=== PATIENT | female | born 1975 | race Caucasian/White ===

== ENCOUNTER 2019-01-08 14:14 | Emergency (ER) | payer OTHER, SELFPAY ==
[2019-01-08 14:16] VITALS: BP 137/87; PULSE 90; RESP 16; TEMP 36.4; O2SAT 97; BMI 23.3
--- NOTE | 2019-01-08 14:16 | EKG12_ITS ---
Test Reason : CP Blood Pressure : / mmHG Vent. Rate : 089 BPM Atrial Rate : 089 BPM P-R Int : 152 ms QRS Dur : 084 ms QT Int : 362 ms P-R-T Axes : 071 078 059 degrees QTc Int : 440 ms Normal sinus rhythm Nonspecific ST abnormality Abnormal ECG Confirmed by CHIDI DUMONT, ANDRES ([id number]), city editor JACOB WINCHESTER ([id number] on 01/11/2019 3:51:33 PM Referred By: MANNIE/ARMAND Confirmed By:ANDRES MURILLO MD
--- NOTE | 2019-01-08 14:28 | RAD_ITS ---
STUDY: X-RAY CHEST REASON FOR EXAM: Female, 44 years old. Chest pain. TECHNIQUE: Single AP portable view of the chest. COMPARISON: Comparison is made with prior study November 05, 2016. FINDINGS: Hyperinflation. There is no demonstrated pleural abnormality. Normal size heart. Normal mediastinum and lorne. There is prominence of the pulmonary hilar arteries without peripheral pulmonary vascular congestion, suggesting pulmonary hypertension. Normal visualized aortic arch and descending thoracic aorta. Normal visualized thoracic spine. Normal visualized ribs, clavicles, and shoulders. There is no demonstrated abnormality of the visualized soft tissue structures of the upper abdomen. RAD/Chest 1 View (Portable) IMPRESSION: Hyperinflation. Prominence of the hilar pulmonary arteries. Electronically Signed: Grayson Stewart, at 15:04 EDT , Service support ,
--- NOTE | 2019-01-08 14:28 | EKG12_ITS ---
Test Reason : REPEAT Blood Pressure : / mmHG Vent. Rate : 073 BPM Atrial Rate : 073 BPM P-R Int : 132 ms QRS Dur : 086 ms QT Int : 400 ms P-R-T Axes : 010 077 051 degrees QTc Int : 440 ms Normal sinus rhythm Normal ECG Confirmed by KELECHI DUMONT, MIKE ([id number]), proposal editor TAVO HOLLINGSWORTH ([id number]) on 01/10/2019 1:31:20 PM Referred By: KYLE Confirmed By:MIKE LORENZ MD
[2019-01-08 14:40] LABS: Absolute Lymphocyte Count 0.99 X10^3/ul (0.83-4.51); Absolute Neutrophil Count 6.6 X10^3/uL (2.0-7.7); Basophil# 0.01 X10^3/uL; Basophil% 0.1 % (0-1); Eosinophil# 0.01 X10^3/uL; Eosinophils% 0.1 % (0-5); Hemoglobin 13.8 g/dl (12.0-15.0); Lymphocyte # 0.99 X10^3/ul (4.0); Lymphocyte % 12.4 % (19-41); Mean Corp Hgb Conc 33.7 g/gl (32-36); Mean Corpuscular Volume 89.1 fL (81-99); Mean Platelet Vol. 10.1 fl (6.2-12.0); Monocyte# 0.34 X10^3/uL; Monocyte% 4.3 % (0-10); Neutrophil # 6.61 X10^3/uL (2.7-7.7); Platelet Count 229 K/mm3 (150-450); RBC Distribution Width SD 42.4 fl (35.1-43.9)
[2019-01-08 14:53] LABS: POSITIVE COUNT NO; POSITIVE DIFFERENTIAL NO; POSITIVE MORPHOLOGY NO
[2019-01-08 14:55] LABS: Anion Gap 6 (5-15); BUN 10 mg/dL (7-18); BUN/Creat Ratio 13.2 RATIO (10-20); Calcium,Total 9.3 mg/dL (8.5-10.1); Chloride 106 mmol/L (98-107); Creatinine, Serum 0.76 mg/dL (0.55-1.02); EST Glomerular Filtration Rate 88 mL/min (>60); Est Glom Filt Rate - Afr Amer 107 mL/min (>60); Glucose 97 mg/dL (74-106); Potassium 3.5 mmol/L (3.5-5.1); Sodium Level 139 mmol/L (136-145)
--- NOTE | 2019-01-08 16:00 | ED.VISSUMM ---
- ER Visit Summary Date of Service: 01/08/19 Chief Complaint: Chest pain History of Present Illness: The patient is a 44 F has no history of prior DVT when she was number of years ago. No prior PE. No cardiac history. No history of hypertension, high cholesterol or diabetes. Patient states she has had intermittent left-sided chest pain since Tuesday. She denies any dyspnea nor fever. No chills. No cough. No shortness of breath. No hemoptysis. No leg pain or swelling. It is not associated with any type of exertion. Nothing specifically makes the pain better or worse. It is not pleuritic. Patient did have a similar episode to this about 2 years ago had a negative workup at that time. Was not admitted. Denies her having a stress test or heart catheterization. Physical Examination: Well-appearing middle-age female. Vital signs are stable afebrile. Pulse ox 97% on room air no signs of hypoxia. HEENT exam normal. Neck nontender no JVD. Lungs clear to auscultation bilaterally. Equal symmetrical. Chest wall nontender. Heart regular rate and rhythm rate about 80 no murmur. Abdomen soft and nontender. Normal bowel sounds no peritoneal signs. Specifically the right upper quadrant is nontender. The pain is not associated with eating. Currently she is pain-free. Patient is moving all 4 extremities. They are equal and symmetrical. Calves are nontender without edema or cords. Equal symmetrical radial pulses. 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 Back nontender. Neurologically she is awake alert with no focal motor Test Results: CBC normal. Chemistries normal. Troponin normal. Initial EKG sinus rhythm rate 89 with no acute signs of NV or ischemia. Portable 1 view chest x-ray read by myself and radiologist shows no acute abnormality. Normal cardiac silhouette and mediastinum. No pneumothorax. No infiltrate. Emergency Department Course and Treatment: Patient's symptoms are nonexertional and do not sound cardiac. The nurses put an initial chest pain order sets orders which are currently negative. I am adding a d-dimer due to her history of a prior DVT. Clinically this does not sound like a PE. It does not also sound like it is biliary colic. Treatment Plan:. BMP normal. Troponin normal. D-dimer normal. EKG sinus rhythm rate 89 with no acute signs of NV or ischemia. Chest x-ray portable one view shows no acute abnormality read both by myself the radiologist. Normal cardiac silhouette and mediastinum. Repeat exam patient is doing well at 1744. I went over all test results of both her and her . Clinically this does not sound like cardiac ischemia. The d-dimer is negative and it does not appear to be a PE either I am comfortable with her being discharged home with outpatient follow-up. Disposition: Discharge Impression: Left-sided chest pain resolved uncertain etiology This note was generated with [employer] dictation software. It may contain incorrect words, spelling, and punctuation that were not noted in review of the chart prior to signing ED Disposition - Plan for ED Patient: Referrals: Jesus Cartagena DO [Primary Care Provider] -
--- NOTE | 2019-01-08 16:03 | ED.DCSUM_ITS ---
- ER Visit Summary Date of Service: 01/08/19 Chief Complaint: Chest pain History of Present Illness: The patient is a 44 F has no history of prior DVT when she was number of years ago. No prior PE. No cardiac history. No history of hypertension, high cholesterol or diabetes. Patient states she has had intermittent left-sided chest pain since Tuesday. She denies any dyspnea nor fever. No chills. No cough. No shortness of breath. No hemoptysis. No leg pain or swelling. It is not associated with any type of exertion. Nothing specifically makes the pain better or worse. It is not pleuritic. Patient did have a similar episode to this about 2 years ago had a negative workup at that time. Was not admitted. Denies her having a stress test or heart catheterization. Physical Examination: Well-appearing middle-age female. Vital signs are stable afebrile. Pulse ox 97% on room air no signs of hypoxia. HEENT exam normal. Neck nontender no JVD. Lungs clear to auscultation bilaterally. Equal symmetrical. Chest wall nontender. Heart regular rate and rhythm rate about 80 no murmur. Abdomen soft and nontender. Normal bowel sounds no peritoneal signs. Specifically the right upper quadrant is nontender. The pain is not associated with eating. Currently she is pain-free. Patient is moving all 4 extremities. They are equal and symmetrical. Calves are nontender without edema or cords. Equal symmetrical radial pulses. 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 Back nontender. Neurologically she is awake alert with no focal motor Test Results: CBC normal. Chemistries normal. Troponin normal. Initial EKG s inus rhythm rate 89 with no acute signs of ME or ischemia. Portable 1 view chest x-ray read by myself and radiologist shows no acute abnormality. Normal cardiac silhouette and mediastinum. No pneumothorax. No infiltrate. Emergency Department Course and Treatment: Patient's symptoms are nonexertional and do not sound cardiac. The nurses put an initial chest pain order sets orders which are currently negative. I am adding a d-dimer due to her history of a prior DVT. Clinically this does not sound like a PE. It does not also sound like it is biliary colic. Treatment Plan:. BMP normal. Troponin normal. D-dimer normal. EKG sinus rhythm rate 89 with no acute signs of ME or ischemia. Chest x-ray portable one view shows no acute abnormality read both by myself the radiologist. Normal cardiac silhouette and mediastinum. Repeat exam patient is doing well at 1744. I went over all test results of both her and her . Clinically this does not sound like cardiac ischemia. The d-dimer is negative and it does not appear to be a PE either I am comfortable with her being discharged home with outpatient follow-up. Disposition: Discharge Impression: Left-sided chest pain resolved uncertain etiology This note was generated with [employer] dictation software. It may contain incorrect words, spelling, and punctuation that were not noted in review of the chart prior to signing ED Disposition - Plan for ED Patient: Referrals: Jesus Cartagena DO [Primary Care Provider] -
[2019-01-08 16:44] LABS: D-Dimer Quantitative (DVT/PE) 0.36 FEU/ug/m (0.27-0.49)
[2019-01-08 16:53] VITALS: BP 105/80; PULSE 76; RESP 12; O2SAT 98
[2019-01-08 17:27] VITALS: BP 106/74; PULSE 886; RESP 12; O2SAT 99
--- NOTE | 2019-01-08 17:46 | ED.DEP ---
ED Disposition - Plan for ED Patient: Disposition: Home or Assisted Living Instructions: ED Chest Pain Atypical Unkn Cause Referrals: Jesus Cartagena DO [Primary Care Provider] - 3-5 Days Additional Instructions: Your tests, EKG and chest x-ray were all unremarkable today. Follow-up with your primary care physician or return to the ER feeling worse.
[2019-01-08 18:14] VITALS: BP 114/77; PULSE 88; RESP 14; O2SAT 98
== END 2019-01-08 18:19 | disposition home or self-care (01) ==
PROVIDERS: Emergency Provider Emergency Medicine; Family Provider Family Medicine; PCP Family Medicine
DX: R07.9 Chest pain, unspecified (principal)
CPT/HCPCS: 71045; 80048; 84484; 85025; 85379; 93005; 99284; A4216

== ENCOUNTER 2024-02-17 12:22 | Emergency (ER) | payer OTHER, SELFPAY ==
[2024-02-17 12:23] VITALS: BP 131/81; PULSE 74; RESP 19; TEMP 36.1; O2SAT 96; BMI 22.7
--- NOTE | 2024-02-17 12:33 | EKG12_ITS ---
Test Reason : CP Blood Pressure : / mmHG Vent. Rate : 078 BPM Atrial Rate : 078 BPM P-R Int : 144 ms QRS Dur : 082 ms QT Int : 388 ms P-R-T Axes : 000 068 036 degrees QTc Int : 442 ms Normal sinus rhythm with sinus arrhythmia Normal ECG Confirmed by CHIDI DUMONT, ANDRES ([id number]), content editor TAVO HOLLINGSWORTH ([id number]) on 02/20/2024 11:36:44 AM Referred By: Confirmed By:ANDRES MURILLO MD
--- NOTE | 2024-02-17 12:35 | EDS_ITS ---
HPI <GREGG Garcia - Last Filed: 02/17/24 15:40> History of Present Illness Chief Complaint: Chest Pain Narrative Narrative: Patient presenting today due to left-sided chest achiness that radiates to her back, left arm, and the left side of her neck. Her symptoms started while she was doing laundry around 10 AM this morning. She then went to a and she noticed that her hands became sweaty, she felt nauseous, and her chest symptoms felt worse, prompting her to come in for evaluation. She reports that now it is not necessarily painful but she does feel a pressure. She states that this has happened intermittently over the past couple months. She has never undergone any cardiac testing. She denies any significant personal or family cardiac history. She denies a PMH of any chronic health conditions. PE Risk Factors: Negative for Recent Travel/Surgery, Recent Immobilization, Prior DVT or PE or Cancer PFSH <GREGG Garcia - Last Filed: 02/17/24 15:40> [facility] Home Medications No Known/Unobtainable [No Known Home Medications] 11/05/16 [History Last Taken Unknown] Allergy/AdvReac Type Severity Reaction Status Date / Time No Known Allergies Allergy Verified 11/05/16 11:44 Social History Smoking Status: Never smoker ROS <GREGG Garcia - Last Filed: 02/17/24 15:40> ROS ED Constitutional Constitutional ED: Denies chills or fever(s) Cardiovascular Cardiovascular: Reports chest pain; Denies palpitations or racing heartbeat Respiratory/Chest Respiratory/Chest: Denies cough, dyspnea or dyspnea on exertion Gastrointestinal Gastrointestinal: Reports nausea; Denies abdominal pain or vomiting Musculoskeletal Musculoskeletal: Reports back pain; Denies arthralgias or myalgias Integumentary Denies rash Neurologic Neurologic: Denies paresthesias or weakness EXAM <GREGG Garcia - Last Filed: 02/17/24 15:40> Physical Exam Const Vital Signs: 02/17/24 12:23 02/17/24 13:22 02/17/24 14:00 Temperature 97.0 F L Temperature Source Temporal Pulse Rate 74 80 81 Respiratory Rate 19 H 16 15 Blood Pressure 131/81 H 105/79 111/76 Blood Pressure Mean 97 87 87 Pulse Ox 96 98 96 Oxygen Delivery Method Room Air Room Air Room Air 02/17/24 15:00 02/17/24 15:42 Temperature 97.6 F L Temperature Source Pulse Rate 82 75 Respiratory Rate 19 H 17 Blood Pressure 109/74 108/75 Blood Pressure Mean 85 86 Pulse Ox 97 97 Oxygen Delivery Method Room Air Positive well nourished, well developed and no apparent distress General Appearance ED: well developed HEENT Reports normocephalic and head/scalp atraumatic Mouth ED: Yes moist mucous membranes normal Eyes PERRL and EOMs intact bilaterally Neck full ROM and supple Chest Wall inspection of chest normal Resp normal respiratory effort and clear to auscultation bilaterally Cardio regular rate and regular rhythm GI soft to palpation, non-tender, non-distended and no masses Back/Spine normal ROM and normal to inspection Extremity normal to inspection and full ROM Neuro oriented x3, CN's II-XII intact bilaterally, moves all extremities, no focal motor deficits and no sensory deficits noted Sensorium / Orientation: awake and alert Psych mental status grossly normal and thought process normal Skin no rashes or lesions noted and no wounds <Dr. Jcarlos Bower, - Last Filed: 02/17/24 16:21> Physical Exam Const Vital Signs: 02/17/24 12:23 02/17/24 13:22 02/17/24 14:00 Temperature 97.0 F L Temperature Source Temporal Pulse Rate 74 80 81 Respiratory Rate 19 H 16 15 Blood Pressure 131/81 H 105/79 111/76 Blood Pressure Mean 97 87 87 Pulse Ox 96 98 96 Oxygen Delivery Method Room Air Room Air Room Air 02/17/24 15:00 02/17/24 15:42 Temperature 97.6 F L Temperature Source Pulse Rate 82 75 Respiratory Rate 19 H 17 Blood Pressure 109/74 108/75 Blood Pressure Mean 85 86 Pulse Ox 97 97 Oxygen Delivery Method Room Air <GREGG Garcia - Last Filed: 02/17/24 15:40> Heart Score History: Moderately Suspicious ECG: Normal Age: >45 - <65 years Risk Factors: No Risk Factors Troponin: </= Normal Limit Score: 2 <Dr. Jcarlos Bower DO - Last Filed: 02/17/24 16:21> Heart Score Score: 2 MDM <GREGG Garcia Last Filed: 02/17/24 15:40> MDM MDM Narrative Medical decision making narrative: Patient presenting due to left-sided chest pain/pressure. Cardiac workup will be obtained. She is well-appearing and in no acute distress. CBC and BMP are unremarkable, nonsignificant delta troponin. Chest x-ray negative for any acute findings. EKG is normal sinus rhythm, no cardiac ischemia. Patient has a low heart score, I did recommend that she follow-up with her PCP as an outpatient to have further cardiac testing performed. Return instructions were given and patient will be discharged home in stable condition. She is comfortable with pl an. Lab Data Attestation: I reviewed the patient's lab results. Lab results narrative: Nonsignificant delta troponin Labs: Laboratory Results - last 24 hr 02/17/24 02/17/24 12:45 15:03 WBC 6.6 RBC 4.61 Hgb 13.4 Hct 41.7 MCV 90.5 MCH 29.1 MCHC 32.1 RDW Std Deviation 43.0 RDW Coeff of Rosa M 13.0 Plt Count 217 MPV 10.1 Immature Gran % (Auto) 0.500 Neut % (Auto) 77.4 H Lymph % (Auto) 17.1 L [place] % (Auto) 4.4 Eos % (Auto) 0.3 Baso % (Auto) 0.3 Absolute Neuts (auto) 5.1 Absolute Lymphs (auto) 1.13 Nucleated RBC % 0 Sodium 138 Potassium 3.8 Chloride 105 Carbon Dioxide 28.0 Anion Gap 5 BUN 9 Creatinine 0.71 Estim Creat Clear Calc 86.25 Est GFR (MDRD) Af Amer 113 Est GFR (MDRD) Non-Af 93 BUN/Creatinine Ratio 12.7 Glucose 89 Calcium 9.4 Troponin I High Sens 4 3 Radiography X-Ray: Read by ED Physician Diagnostic Testing: Clinical Impression(s) from Imaging Studies Chest X-Ray 02/17/24 12:50 IMPRESSION: Hyperinflation. The lungs are clear. Stable prominence of the central pulmonary arteries. Electronically Signed: Grayson Stewart MD at 13:06 EDT , EKG Initial EKG: Comments: 70 bpm, normal sinus rhythm, no ST elevation <Dr. Jacrlos Bower, DO - Last Filed: 02/17/24 16:21> [facility] Lab Data Labs: Laboratory Results - last 24 hr 02/17/24 02/17/24 12:45 15:03 WBC 6.6 RBC 4.61 Hgb 13.4 Hct 41.7 MCV 90.5 MCH 29.1 MCHC 32.1 RDW Std Deviation 43.0 RDW Coeff of Rosa M 13.0 Plt Count 217 MPV 10.1 Immature Gran % (Auto) 0.500 Neut % (Auto) 77.4 H Lymph % (Auto) 17.1 L [place] % (Auto) 4.4 Eos % (Auto) 0.3 Baso % (Auto) 0.3 Absolute Neuts (auto) 5.1 Absolute Lymphs (auto) 1.13 Nucleated RBC % 0 Sodium 138 Potassium 3.8 Chloride 105 Carbon Dioxide 28.0 Anion Gap 5 BUN 9 Creatinine 0.71 Estim Creat Clear Calc 86.25 Est GFR (MDRD) Af Amer 113 Est GFR (MDRD) Non-Af 93 BUN/Creatinine Ratio 12.7 Glucose 89 Calcium 9.4 Troponin I High Sens 4 3 Radiography Diagnostic Testing: Clinical Impression(s) from Imaging Studies Chest X-Ray 02/17/24 12:50 IMPRESSION: Hyperinflation. The lungs are clear. Stable prominence of the central pulmonary arteries. Electronically Signed: Grayson Stewart MD at 13:06 EDT , Treatment and Re-Evaluation :: I have personally performed a face to face assessment of the patient and have reviewed the RAHEEL Note. I performed a substantive portion of the visit including all aspects of the following. My moise findings include: History: Patient presents with chest pain that has been intermittent over the last 2 weeks. Patient states became worse this morning. Patient describes as aching. Patient states it is mainly over the left side of her chest and radiates into her left neck, left shoulder, and back. Patient admits to some nausea with the pain but denies any vomiting. Patient states she did break out into a sweat this morning. Patient states her pain gets better after burping. Patient states nothing makes it worse. Patient denies any cough or fever. Patient denies any shortness of breath. Exam: Vital signs are stable. Patient is afebrile. Patient is in no acute distress. Oral mucosa is pink and moist. Neck is supple. Trachea is midline. There is no JVD. Heart was regular rate and rhythm. Lungs are clear and equal bilaterally. Abdomen is soft. Bowel sounds are normal. There is no tenderness. There is no reproducible tenderness over the left upper chest wall. Cranial nerves II through XII are intact. There are no focal motor or sensory deficits noted. Medical Decision Making: Differential diagnosis includes cardiac dysrhythmia, cardiac ischemia, pneumonia, pneumothorax, electrolyte abnormality, musculoskeletal pain, and anxiety. EKG will be obtained to assess for cardiac dysrhythmia and cardiac ischemia. Chest x-ray will be obtained to assess for pneumonia and pneumothorax. CBC will be obtained to assess for leukocytosis and anemia. Basic metabolic profile will be obtained to assess for electrolyte abnormality and renal function. High-sensitivity troponin will be obtained to assess for cardiac ischemia. 2-hour repeat high-sensitivity troponin will be obtained to assess for ongoing cardiac ischemia. EKG was obtained. On my independent interpretation, it showed a normal sinus rhythm with a rate of 78. SD interval, QRS interval, and QTc intervals were all normal. [place] was normal. There are no acute ST or T wave changes. CBC was reviewed and was within normal limits. Basic metabolic profile was reviewed and was within normal limits. Initial high-sensitivity troponin was reviewed and was normal at 4. 2-hour repeat high-sensitivity troponin was reviewed and was normal at 3. Patient was advised of her findings. Patient has a HEART score of 2. Patient was advised that this is low risk for acute cardiac event. Patient was instructed to follow-up with her primary care physician in 5 to 7 days for further evaluation. Patient and family understood and were agreeable with the plan. All questions were answered. Discharge Plan Triage Chief Complaint: Chest Pain ED Midlevel Provider: Angelique Gallo ED Provider: Jcarlos Bower Dx/Rx/DC Orders Clinical Impression: Chest pain Instructions: ED Chest Pain, Uncertain Cause Prescriptions: No Action No Known Home Medications Primary Care Provider: Jesus Cartagena Referrals: Jesus Cartagena DO [Primary Care Provider] - 5-7 Days Activity Restrictions/Additional Instructions: Follow-up with your PCP and return for any worsening of your symptoms. Disposition Disposition: Home, Self Care Discharge Date/Time: 02/17/24 15:48
--- NOTE | 2024-02-17 12:50 | RAD_ITS ---
STUDY: X-RAY CHEST REASON FOR EXAM: Female, 49 years old. Chest pain TECHNIQUE: PA and lateral views of the chest. COMPARISON: Comparison is made with prior examination of January 08, 2013. FINDINGS: EKG electrodes are seen. Hyperinflation. The lungs are clear. There is no demonstrated pleural abnormality. Normal size heart. Normal mediastinum and lorne. There is prominence of the pulmonary hilar arteries without peripheral pulmonary vascular congestion, suggesting pulmonary hypertension. Normal visualized aortic arch and descending thoracic aorta. There are degenerative changes of the visualized thoracic spine. Normal visualized ribs, clavicles, and shoulders. There is no demonstrated abnormality of the visualized soft tissue structures of the upper abdomen. RAD/Chest PA and Lateral IMPRESSION: Hyperinflation. The lungs are clear. Stable prominence of the central pulmonary arteries. Electronically Signed: Grayson Stewart MD at 13:06 EDT ,
[2024-02-17 13:00] LABS: Absolute Lymphocyte Count 1.13 X10^3/uL (0.83-4.51); Absolute Neutrophil Count 5.1 X10^3/uL (2.0-7.7); Basophil# 0.02 X10^3/uL; Basophil% 0.3 % (0-1); Eosinophil# 0.02 X10^3/uL; Eosinophils% 0.3 % (0-5); Hematocrit 41.7 % (37-47); Hemoglobin 13.4 g/dL (12.0-15.0); Lymphocyte # 1.13 X10^3/ul (0.83-4.51); Lymphocyte % 17.1 % (19-41); Mean Corp Hgb Conc 32.1 g/dL (32-36); Mean Corpuscular Hgb 29.1 pg (27.0-32.0); Mean Corpuscular Volume 90.5 fL (81-99); Mean Platelet Vol. 10.1 fl (6.2-12.0); Monocyte# 0.29 X10^3/uL; Monocyte% 4.4 % (0-10); NRBC Flagged by Analyzer 0 % (0-5); Neutrophil # 5.11 X10^3/uL (2.7-7.7); Neutrophil % 77.4 % (47-70); Platelet Count 217 K/mm3 (150-450); Red Blood Count 4.61 M/mm3 (4.2-5.4); White Blood Count 6.6 K/mm3 (4.4-11.0)
[2024-02-17 13:20] LABS: Anion Gap 5 (5-15); BUN 9 mg/dL (7-18); BUN/Creat Ratio 12.7 RATIO (10-20); Calcium,Total 9.4 mg/dL (8.5-10.1); Chloride 105 mmol/L (98-107); Creatinine, Serum 0.71 mg/dL (0.55-1.02); EST Glomerular Filtration Rate 93 mL/min (>60); Est Glom Filt Rate - Afr Amer 113 mL/min (>60); Estimated Creatinine Clearance 86.25 ml/min; Glucose 89 mg/dL (74-106); Potassium 3.8 mmol/L (3.5-5.1); Sodium Level 138 mmol/L (136-145); Troponin-I HS (w/2H Reflex) 4 pg/mL (3.0-54.0)
[2024-02-17 13:22] VITALS: BP 105/79; PULSE 80; RESP 16; O2SAT 98
[2024-02-17 14:00] VITALS: BP 111/76; PULSE 81; RESP 15; O2SAT 96
[2024-02-17 14:53] LABS: Reflex Troponin-HS? (from REC) Y
[2024-02-17 15:00] VITALS: BP 109/74; PULSE 82; RESP 19; O2SAT 97
[2024-02-17 15:33] LABS: Troponin-I HS 3 pg/mL (3.0-54.0)
[2024-02-17 15:42] VITALS: BP 108/75; PULSE 75; RESP 17; TEMP 36.4; O2SAT 97
== END 2024-02-17 15:48 | disposition home or self-care (01) ==
PROVIDERS: Physician Assistant; Emergency Provider Emergency Medicine; PCP Family Medicine; Visit Provider Emergency Medicine
DX: R07.9 Chest pain, unspecified (principal)
CPT/HCPCS: 71046; 80048; 84484; 85025; 93005; 99284; A4216

== ENCOUNTER 2024-05-16 06:24 | Day surgery (SDC) | payer SELFPAY, OTHER ==
[2024-05-16] VITALS (7 sets, daily range): BP systolic 97–114; BP diastolic 65–76; PULSE 63–74; RESP 16; TEMP 36.2–37.1; O2SAT 99–100; BMI 23.4
[2024-05-16 06:45] LABS: Internal QC Validated? YES +Cl - CLEAR BKGD; Pregnancy, Urine Negative Negative
[2024-05-16] MEDS: Lactated Ringers 1,000 ML 15 ML IV (06:53)
--- NOTE | 2024-05-16 07:26 | PRE.ANES_ITS ---
ASA Classification* ASA Classification ASA Classification: 2 Assessment & Plan Anesthesia* Anesthesia Assessment Anesthesia Assessment: Discussed sedation and/or anesthesia options, risks, benefits, and alternatives with patient/parents/legal guardian/POA. Questions invited. The patient/parents/legal guardian/POA seems to understand and agrees to proceed with anesthesia plan. Reviewed the physical assessment, medical history, allergy history and patient home medications list prior to surgery/procedure/anesthetic and documented any changes. Performed airway and anesthesia risk assessments. Anesthesia Type Anesthesia Type: MAC Anesthesia Focused Assessment* Temperature: 97.6 F Pulse Rate: 74 Blood Pressure: 114/76 Respiratory Rate: 16 Pulse Ox: 100 Airway Assessment Mouth opens: >3 cm Mallampati Score: II Focused Labs Anesthesia Preop lab: CBC WBC 6.6 K/mm3 (4.4-11.0) 02/17/24 12:45 RBC 4.61 M/mm3 (4.2-5.4) 02/17/24 12:45 Hgb 13.4 g/dL (12.0-15.0) 02/17/24 12:45 Hct 41.7 % (37-47) 02/17/24 12:45 Plt Count 217 K/mm3 (150-450) 02/17/24 12:45 CHEMISTRY Potassium 3.8 mmol/L (3.5-5.1) 02/17/24 12:45 Sodium 138 mmol/L (136-145) 02/17/24 12:45 BUN 9 mg/dL (7-18) 02/17/24 12:45 Creatinine 0.71 mg/dL (0.55-1.02) 02/17/24 12:45 Glucose 89 mg/dL (74-106) 02/17/24 12:45 COAG Urine Test Negative Negative 05/16/24 06:35 Pre-Assessment Diagnosis/Proposed Procedure Planned Operative Procedure(s): Colonoscopy Anesthesia History Anesthesia History - resident in diagnostic radiology: Anesthesia History - resident in diagnostic radiology Hx Hospitalization No 04/16/24 09:10 Any Problems With Anesthesia No 04/16/24 09:10 Cholinesterase deficiency No 04/16/24 09:10 You/Your Family Experience No 04/16/24 09:10 fever (hyperthermia) with Relationship Recent Exposure to Contagious No 05/16/24 06:48 Disease Does patient have nerve No 04/16/24 09:10 stimulator Patient instructed to have device shut off --Does patient have Pacemaker No 05/16/24 06:48 or ICD? When Was Last Pacemaker Check QUESTION #4 FULL TEXT: You/Your Family Experience fever (hyperthermia) with Anesthesia Last Oral Intake Last Oral intake: Last Oral Intake NPO since 04:00 05/16/24 06:48 Meds taken in AM with sips of No 05/16/24 06:48 water? Meds patient instructed to take am of surgery PONV PONV - resident in diagnostic radiology: PONV - resident in diagnostic radiology Female HX of Motion Sickness HX of N/V After Surgery Non-Smoker Duration of Surgery greater than 60 minutes Number of Risk Factors PONV Score Height & Weight Height & Weight: Anesthesia: Height & Weight Height 5 ft 3 in 05/16/24 06:48 Weight: 60 kg 05/16/24 06:48 Body Mass Index (BMI) 23.4 05/16/24 06:48 Respiratory Assessment Respiratory Assessment - resident in diagnostic radiology: Respiratory Tract Infection Hx - resident in diagnostic radiology Hx Respiratory Tract Infection No 04/16/24 09:10 STOP Sleep Apnea STOP Sleep Apnea - resident in diagnostic radiology: STOP Sleep Apnea - resident in diagnostic radiology Hx Hypertension No 04/16/24 09:10 Hx Sleep Apnea No 04/16/24 09:10 CPAP BIPAP Do you snore loudly (louder than talking or can be heard Do you often feel tired/ fatigued/ sleepy during daytime? Has anyone observed you stop breathing during sleep? STOP Results QUESTION #5 FULL TEXT : Do you snore loudly (louder than talking or can be heard through closed doors)? 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 Specify any problems Hx of Preganancy in last 3 Months Nurse Filling Out Transfusion & Questions: Date: Time: Patient unable to answer at this time (ie. confused, unrespo /Reproduction History /Reproductive History - resident in diagnostic radiology: /Reproductive Hx- resident in diagnostic radiology Hx Now Gestational Age (in weeks): EDC: Hx Hx Para Hx Section SAB No 04/16/24 09:10 Active Medications Active Medications: Current Medications Generic Name Dose Route Start Last Admin Trade Name Freq PRN Reason Stop Dose Admin Lactated Ringer's 1,000 mls @ 15 mls/hr 05/16/24 06:45 05/16/24 06:53 IV 15 mls/hr .Q48H SOPHIA Administration PFSH Medical History Wears glasses Wears dentures Back pain History of hiatal hernia Non-smoker Leg cramps Chest pain Family hx colonic polyps Home Medications ?Medication ?Instructions ?Recorded ?Last Taken ?Type sennosides 8.6 mg tablet 8.6 mg PO DAILY 03/14/24 Unknown History (Vegetable Laxative) Allergy/AdvReac Type Severity Reaction Status Date / Time No Known Allergies Allergy Verified 05/16/24 06:46 Family History Sister Colon polyps Surgical History Hx of cholecystectomy Social History household members: spouse and children Smoking Status: Never smoker alcohol intake: never substance use type: does not use mary lou/orthodox: [employer] Review of Systems (Anesthesia) ROS Narrative System reviewed and no additional complaints, except as documented.
--- NOTE | 2024-05-16 07:30 | COLBX_PTH ---
PATIENT: MALKA WINCHESTER LOC: EN U#:[id number] AGE/SX: 49/F ROOM: RE05/16/[address]: Dr. Deven Toribio DO : 1975 BED: DIS: 05/16/2024 SPEC #: [id number] RECD: 05/16/24 10:42 STATUS: PHYLICIA ADIS #: [id number] TEX: 05/16/24 07:[address]: Deven Toribio DEPT: SURGICAL PATHOLOGY RECD BY: Radha Berrios ENTERED: 05/16/24 11:45 SP TYPE: COLON BX OTHR DR: Dr. Jesus Cartagena DO Tissues: COLON BIOPSY Procedures: Surgery Specimen Level IV HEADER OPERATION: Colonoscopy, biopsy PRE-OP DIAGNOSIS: Encounter for screening for malignant neoplasm of colon TISSUE SUBMITTED: Random colon biopsy MICROSCOPIC DIAGNOSIS Colon, random biopsy: Fragments of colonic mucosa with pigment laden macrophages, consistent with melanosis coli. ASPEN/ 05/17/2024 MICROSCOPIC DESCRIPTION Slides are reviewed. GROSS DESCRIPTION Received in fixative is one container labeled with the patient's name and designated Random colon biopsy. The specimen consists of multiple irregular fragments of light gutierrez soft tissue that in aggregate measure 1.5 x 0.6 x 0.1 cm. The specimen is totally submitted in one cassette. AM/ 05/16/2024 TC:5 CPT:78937
--- NOTE | 2024-05-16 07:30 | PCM.HP.BLA ---
History and Physical Date of Admission: 05/16/24 Chief Complaint: Constipation Details: MALKA WINCHESTER, is a 49 F who presents to the office today for establishment with [facility]. She has been having abdominal pain, constipation and back pain. This has been going on for about 2 years. She has a bowel movement once a day while taking an OTC supplement called formula #1. She would not a have a bowel movement if she was not taking the supplement. Her symptoms are worse while during her menstrual cycle. She has periods longer than 1 week with light bleeding but a lot of pain. She is unsure if her symptoms are GI or in nature. She mentions her sister has endometriosis. She already has colonoscopy scheduled with open access on 05/16/24. She had cholecystectomy in 2018 and wonders if any of these problems could be related. She has also has intermittent chest pain that has prompted her to go to the ED. She had a cardiac work up but came back unremarkable. It was recommended she f/u with her PCP for further cardiac workup. She feels the chest pain could be GI related. She usually feels better after she belches. She has tried taking TUMs for these symptoms. She denies having sob during these episodes. ROS Const Constitutional: No fatigue, fever(s) or weight change Eyes Eyes: No change in vision ENT ENT: No abnormal hearing, difficulty swallowing, mouth lesions, tongue swelling or throat swelling Resp Respiratory: No cough or shortness of breath Cardio Cardiology: No chest pain at rest, chest pain with exertion, shortness of breath or dyspnea on exertion Gastro GI: Positive for abdominal pain, bloating and excessive flatus; No belching, change in bowel habits, change in stool character, coffee ground emesis, constipation, cramping, diarrhea, heartburn, difficulty swallowing, feeling full early, incontinent of stools, Vomiting blood/hematemesis, Blood in stool, loose stools, Black,tarry stools, nausea/dyspepsia, pain with swallowing, vomiting or other Genitourinary-Female: Positive for abnormal periods; No difficulty urinating or burning urination Musc Musculoskeletal: No joint pain Skin Skin: No yellowing of the eye or itchy eyes Neuro Neurology: No abnormal hearing, abnormal movements, confusion, unsteady gait/balance or memory loss Psych Psychiatric: No anxiety, No confusion, No depression and No memory loss Endo Endocrine: No fatigue or weight change Aller/Imm Allergy/Immunologic: No itchy eyes, throat swelling or tongue swelling Ernesto/Lymp Hematologic/Lymphatic: No easy bleeding or easy bruising Exam Const General: cooperative and comfortable Nutritional Appearance: average body habitus and well nourished [facility] Head: normal to inspection Ears: hearing grossly normal bilaterally Nose: external nose normal Face and sinus: normal facial exam Throat: posterior oropharynx normal Eyes General: appearance normal, both eyes and all related structures Neck Neck: normal visual inspection Chest Chest palpation & inspection: normal inspection of the chest and normal palpation of entire chest wall Resp Effort & Inspection: normal respiratory effort Auscultation: Bilateral: Clear to Auscultation Cardio Palpation: normal PMI Rate: regular rate Rhythm: regular rhythm GI Inspection: normal to inspection Auscultation: normal bowel sounds Percussion: normal to percussion Palpation: no hepatosplenomegaly Skin General: no rashes or lesions noted Neuro General: patient alert Extrem General: normal to inspection Psych Affect: normal affect Assessment and Plan Assessment and Plan (1) Constipation: Plan: Patient is establishing with [facility] today for constipation and abdominal pain. It is unclear wether her pain is pelvic or abdominal. -She already has colonoscopy scheduled through open access. I told her this will also be helpful to assess her symptoms. -I recommended she continue taking the OTC supplement for her constipation as it works well for her. -Also recommended taking OTC famotidine during episodes of suspected heartburn. She would like to try a PRN medication rather than a PPI -Will refer patient to [facility] women's care for further work up of prolonged periods and abdominal/pelvic pain. 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 There are no clinical changes since date of exam.
--- NOTE | 2024-05-16 08:08 | OP.COLON_ITS ---
Patient Name: Khalif Turcios Procedure Date: 05/16/2024 7:29 AM Date of : 1975 Age: 49 Procedure: Colonoscopy Indications: Screening for colorectal malignant neoplasm Providers: Deven Toribio DO Medicines: Monitored Anesthesia Care Patient Profile: This is a 49 year old female. Refer to note in patient chart for documentation of history and physical. Last Colonoscopy: none. The patient's first colonoscopy is today. Complications: No immediate complications. Procedure: Pre-Anesthesia Assessment: - Prior to the procedure, a History and Physical was performed, and patient medications and allergies were reviewed. The patient is competent. The risks and benefits of the procedure and the sedation options and risks were discussed with the patient. All questions were answered and informed consent was obtained. Patient identification and proposed procedure were verified by the physician in the pre-procedure area. Mental Status Examination: alert and oriented. Airway Examination: normal oropharyngeal airway and neck mobility. Respiratory Examination: clear to auscultation. CV Examination: normal. Prophylactic Antibiotics: The patient does not require prophylactic antibiotics. Prior Anticoagulants: The patient has taken no anticoagulant or antiplatelet agents. After reviewing the risks and benefits, the patient was deemed in satisfactory condition to undergo the procedure. The anesthesia plan was to use monitored anesthesia care (MAC). Immediately prior to administration of medications, the patient was re-assessed for adequacy to receive sedatives. The heart rate, respiratory rate, oxygen saturations, blood pressure, adequacy of pulmonary ventilation, and response to care were monitored throughout the procedure. The physical status of the patient was re-assessed after the procedure. After I obtained informed consent, the scope was passed under direct vision. Throughout the procedure, the patient's blood pressure, pulse, and oxygen saturations were monitored continuously. The Colonoscope was introduced through the anus and advanced to the cecum, identified by appendiceal orifice and ileocecal valve. The colonoscopy was performed without difficulty. The patient tolerated the procedure well. The quality of the bowel preparation was adequate. The ileocecal valve, appendiceal orifice, and rectum were photographed. Scope In: 7:42:31 AM Scope Withdrawal Time 0 hours 6 minutes 12 seconds Scope Out: 7:58:47 AM Total Procedure Duration Time 0 hours 16 minutes 16 seconds Findings: The perianal and digital rectal examinations were normal. A diffuse area of severe melanosis was found in the entire colon. Biopsies were taken with a cold forceps for histology. Verification of patient identification for the specimen was done. Estimated blood loss was minimal. The colon (entire examined portion) was significantly redundant. Impression: - Melanosis in the colon. Biopsied. - Redundant colon. Recommendation: - Discharge patient to home. - Resume previous diet. - Continue present medications. - Await pathology results. - Repeat colonoscopy in 10 years for screening purposes. Procedure Code(s): --- Professional --- 48451, Colonoscopy, flexible; with biopsy, single or multiple CPT copyright 2021 [employer]. All rights reserved. The codes documented in this report are preliminary and upon microsoft infrastructure consultant review may be revised to meet current compliance requirements. Deven Toribio DO 05/16/2024 8:07:31 AM This report has been signed electronically. Number of Addenda: 0 Note Initiated On: 05/16/2024 7:29 AM
--- NOTE | 2024-05-16 08:08 | OP.CCLET_ITS ---
05/16/2024 Jesus Cartagena Re : Colonoscopy procedure for Khalif Turcios Dear Mitzi This procedure was performed on Thursday, May 16, 2024. My impressions and recommendations are as follows: Impressions : - Melanosis in the colon. Biopsied. - Redundant colon. Recommendations : - Discharge patient to home. - Resume previous diet. - Continue present medications. - Await pathology results. - Repeat colonoscopy in 10 years for screening purposes. My findings are described in the full procedure note, which is enclosed. If I can be of further assistance, please feel free to contact me at . Sincerely, Deven Toribio, 05/16/2024 8:07:31 AM This report has been signed electronically.
--- NOTE | 2024-05-16 08:09 | PCM.POST.ANE ---
Anesthesia: Postop Eval I Current Vital Signs Temperature: 97.1 F Pulse Rate: 66 Blood Pressure: 97/65 Respiratory Rate: 16 Pulse Ox: 99 Oxygen Delivery Method: Room Air Assessment Airway patent: Yes Spontaneous unlabored respirations: Yes Mental status: Asleep nausea: No Vomiting: No Anesthesia Complication: No Fluid Hydration Crystalloid volume administer (ml): 600 Total IV fluid infused: 600 Progress Note Anesthesia document: Postop Eval 1 completed: Yes
--- NOTE | 2024-05-16 08:35 | PCM.POSTANE2 ---
Anesthesia Postop Eval I Sum Postop Eval Completion status Anesthesia document: Postop Eval 1 completed: Yes Anesthesia Postop Eval I Summary Anesthesia Postop Eval I Summary: Anesthesia Postop Eval I: Assessment Summary Airway patent Yes 05/16/24 08:10 [email or web address] Spontaneous unlabored Yes 05/16/24 08:10 [email or web address] respirations Mental status Asleep 05/16/24 08:10 [email or web address] nausea No 05/16/24 08:10 [email or web address] Vomiting No 05/16/24 08:10 [email or web address] Anesthesia Postop Eval I: Fluid Summary Crystalloid volume administer 600 05/16/24 08:10 [email or web address] (ml) Colloids volume administered ( ml) Blood Product volume administered (ml) Total IV fluid infused 600 05/16/24 08:10 [email or web address] Anesthesia Postop Eval I: Summary Notes Anesthesia Complication No 05/16/24 08:10 [email or web address] Anesthesia Complication Comment: Post-operative progress note Anesthesia: Postop Eval II Evaluation Mental status: Awake Pain Level: 0 nausea: No Vomiting: No
== END 2024-05-16 08:50 | disposition home or self-care (01) ==
LOC: EN 06:27 → AC 06:28
PROVIDERS: Anesthesiology; PCP Family Medicine; Referring Provider Family Medicine; Visit Provider Internal Medicine Gastroenterology
PROC: 0DJD8ZZ Inspection of Lower Intestinal Tract, Via Natural or Artificial Opening Endoscopic (ICD-10-PCS; CPT 45378; principal; 2024-05-16 07:25)
DX: Z12.11 Encounter for screening for malignant neoplasm of colon (principal); K63.89 Other specified diseases of intestine; K59.00 Constipation, unspecified; Q43.8 Other specified congenital malformations of intestine
CPT/HCPCS: 45380; 81025; 88305; J7120; J2405

== ENCOUNTER → 2024-07-10 | Outpatient (CLI) | payer OTHER, SELFPAY ==
[2024-07-16 15:08] LABS: HPV APTIMA, High Risk Negative (Negative)
== END | disposition home or self-care (01) ==
LOC: LABSPEC 11:56
PROVIDERS: PCP Family Medicine; Visit Provider Nurse Practitioner Women's Health
DX: Z12.4 Encounter for screening for malignant neoplasm of cervix (principal)
CPT/HCPCS: 87624; 88175; G0145

== ENCOUNTER → 2024-07-18 | Outpatient (CLI) | payer SELFPAY, OTHER ==
--- NOTE | 2024-07-18 16:20 | US_ITS ---
STUDY: ULTRASOUND OF THE FEMALE PELVIS - COMPLETE REASON FOR EXAM: Female, 49 years old. pain TECHNIQUE: Transvaginal and transabdominal imaging. COMPARISON: None. FINDINGS: The uterus is anteverted and is in a midline position. The uterus measures 10.6 x 6.5 cm. Normal uterine cervix. The endometrium measures 8.7 mm in thickness, and is trilaminar. Endometrial mass visualized. This may be a polyp and measures 10 x 8 mm. It has vascularity. Is echogenic. There is no demonstrated myometrial mass. I.U.D. - The patient does not have an I.U.D. The right ovary is visualized. The right ovary measures 2.5 x 1.7 cm. There is no right ovarian cyst or ovarian mass. There is no visualized right adnexal mass or complex lesion. There is normal arterial and normal venous vascularity. The left ovary is visualized. The left ovary measures 2.5 x 2.5 cm. Ovary cyst measures 19 mm. There is no visualized left adnexal mass or complex lesion. There is normal arterial and normal venous vascularity. There is no fluid in the cul-de-sac. Urinary bladder volume is (in cc) 472. US/Pelvic w/ Transvaginal IMPRESSION: There is endometrial mass. This is abnormal for the patient''s age if she is postmenopausal. Direct visualization is recommended to exclude an underlying mass. Electronically Signed: Diego Carr MD at 16:13 EDT ,
== END | disposition home or self-care (01) ==
PROVIDERS: PCP Family Medicine; Referring Provider Nurse Practitioner Women's Health; Visit Provider Nurse Practitioner Women's Health
DX: R10.2 Pelvic and perineal pain (principal)
CPT/HCPCS: 76830; 76856